=== PATIENT | female | born 1995 | race American Indian/Alaskan Native ===

== ENCOUNTER 2018-01-02 11:40 | Emergency (ER) | payer MEDICAID ==
[~2018-01-02] VITALS: Ht 162.6 cm; Wt 78.5 kg
[~2018-01-02 11:40] MED LIST: NO HOME MEDS
[2018-01-02 11:43] VITALS: BP 114/73
== END 2018-01-02 13:10 | disposition left against medical advice (07) ==
LOC: ER 11:41
DX: M79.672 Pain in left foot (principal); F32.9 Major depressive disorder, single episode, unspecified; F20.9 Schizophrenia, unspecified; Z53.21 Procedure and treatment not carried out due to patient leaving prior to being seen by health care provider

== ENCOUNTER 2018-08-09 16:04 | Emergency (ER) | payer MEDICAID ==
[~2018-08-09] VITALS: Ht 162.6 cm; Wt 54.5 kg
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
--- NOTE | 2018-08-09 16:40 | NUR ---
DR. GONZALEZ HERE TO SEE PATIENT.
--- NOTE | 2018-08-09 16:50 | NUR ---
GREEN SCRUBS APPLIED. PT UPSET TO HAVE TO REMOVE HER BRA AND SOCKS, BUT COMPLIED WHEN DENIED SNACKS. ELOPEMENT BAND AND NAME BAND APPLIED.
[2018-08-09 17:17] LABS: URINE HCG NEGATIVE (NEG)
[2018-08-09 17:19] LABS: CLARITY,URINE SLIGHTLY CLOUDY (Clear); COLOR,URINE YELLOW (Yellow); GLUCOSE, URINE NEGATIVE (Neg); KETONES,URINE NEGATIVE (Neg); LEUKOCYTE ESTERASE ,URINE TRACE (Neg); NITRITES, URINE NEGATIVE (Neg); OCCULT BLOOD,URINE SMALL (Neg); PH,URINE 7.5 (4.8-8.0); PROTEIN,URINE NEGATIVE (Neg); UROBILINOGEN,URINE 0.2 E.U/dL (0.2-1.0)
[2018-08-09 17:20] LABS: UA COLLECTION TYPE CLN CATCH MIDSTREAM
[2018-08-09 17:27] LABS: ALANINE AMINOTRANSFERASE 25 U/L (12-78); ALBUMIN 3.3 G/DL (3.4-5.0); ALKALINE PHOSPHATASE 65 IU/L (46-116); ANION GAP 7 (8-16); ASPARTATE AMINO TRANSFERASE 12 U/L (10-37); BILIRUBIN,TOTAL 0.2 MG/DL (0.1-1.0); BLOOD UREA NITROGEN 8 MG/DL (7-18); BUN/CREATININE RATIO 10.7 (6.6-38.0); CALCIUM 8.5 MG/DL (8.5-10.1); CHLORIDE 104 MMOL/L (99-107); CREATININE 0.75 MG/DL (0.40-0.90); GLUCOSE 97 MG/DL (70-104); POTASSIUM 3.5 MMOL/L (3.5-5.1); SODIUM 142 MMOL/L (135-145); TOTAL CARBON DIOXIDE 30.8 MMOL/L (24-32); TOTAL PROTEIN 6.7 G/DL (6.4-8.2); eGFR > 90 ML/MIN
[2018-08-09 17:28] LABS: URINE AMPHETAMINE SCREEN NEGATIVE (Neg); URINE BARBITUATE SCREEN NEGATIVE (Neg); URINE BENZODIAZEPINES SCREEN NEGATIVE (Neg); URINE CANNABINOID SCREEN POSITIVE (Neg); URINE COCAINE SCREEN NEGATIVE (Neg); URINE METHADONE SCREEN NEGATIVE (Neg); URINE OPIATE SCREEN NEGATIVE (Neg); URINE PHENCYCLIDINE SCREEN NEGATIVE (Neg)
[2018-08-09 17:32] LABS: MUCUS STRANDS MANY /LPF (Neg); SQUAMOUS EPITHELIAL CELL,UR MANY /LPF (FEW)
[2018-08-09 17:33] LABS: AMORPHOUS PHOSPHATES 1+
[2018-08-09 17:34] LABS: BACTERIA,URINE FEW /HPF (Neg); RBC,URINE 0-2 /HPF (0-2); WBC,URINE 0-4 /HPF (0-4)
[2018-08-09 17:37] LABS: ETHANOL < 0.010 GM/DL (0.0-0.010)
[2018-08-09 17:42] LABS: BASOPHILS % (AUTO) 0.7 % (0-1); EOSINOPHILS # (AUTO) 0.1 X10'3 (0-0.9); EOSINOPHILS % (AUTO) 2.1 % (0-6); HEMATOCRIT 39.9 % (35.0-45.0); HEMOGLOBIN 13.4 g/dl (12.0-16.0); LYMPHOCYTES # (AUTO) 1.6 X10'3 (1.1-4.8); LYMPHOCYTES % (AUTO) 28.9 % (21-51); MEAN CORPUSCULAR HEMOGLOBIN 29.8 PG (27.0-31.0); MEAN CORPUSCULAR HGB CONC 33.5 % (33.0-36.5); MEAN CORPUSCULAR VOLUME 88.9 FL (78-98); MEAN PLATELET VOLUME 7.8 FL (7.4-10.4); MONOCYTES # (AUTO) 0.4 X10'3 (0-0.9); MONOCYTES % (AUTO) 6.5 % (2-12); NEUTROPHILS # (AUTO) 3.5 X10'3 (1.8-7.7); NEUTROPHILS % (AUTO) 61.8 % (42-75); PLATELET COUNT 240 X10'3 (140-440); RED BLOOD COUNT 4.49 X10'6 (4.20-5.60); WHITE BLOOD COUNT 5.6 X10'3 (4.5-11.0)
--- NOTE | 2018-08-09 18:50 | NUR ---
TELE PSYCH INITIATED.
--- NOTE | 2018-08-09 20:15 | NUR ---
TELE PSYCH CONSULT COMPLETE, PT KEPT TRYING TO STOP EVAL STATING SHE "HAD TO GO TO THE BATHROOM".
[2018-08-09] MEDS ORDERED: nicotine 7mg patch - 24hr TD ONE (20:30)
[2018-08-09] MEDS ORDERED: OLANZapine 5mg rapidly disint. tablet PO ONE (20:30)
[2018-08-09] MEDS ORDERED: LORazepam 1 MG tablet PO ONE (20:30)
--- NOTE | 2018-08-09 20:30 | NUR ---
PT BECAME AGGITATED AFTER SPEAKING TO TELE PSYCH DEMANDING NICOTINE PATCH AND "SOMETHING FOR ANXIETY". SHE HAD PREVIOUSLY REFUSED THE NICOTINE PATCH IT WAS PASSED ON FROM DAY SHIFT SHE WAS REQUESTING ONE. SECURITY CALLED TO THE BEDSIDE AND MD APPROACHED FOR MED ORDERS.
[2018-08-09] MEDS ORDERED: LORazepam 0.5 MG tablet PO ONE (20:35)
--- NOTE | 2018-08-09 20:52 | NUR ---
relieving RN for break, pt refusing nicotine patch and zyprexa
--- NOTE | 2018-08-09 20:55 | NUR ---
PT ORDERED ZYPREXA AND ATIVAN FOR AGGITATION AND NICOTINE PATCH. REFUSED ALL EXCEPT ATIVAN.
--- NOTE | 2018-08-09 21:56 | NUR ---
PT RESTING QUIETLY, NO FURTHER OUTBURSTS.
--- NOTE | 2018-08-09 22:10 | NUR ---
Packet sent to [facility].
--- NOTE | 2018-08-10 01:26 | NUR ---
NURSE TO NURSE REPORT GIVEN TO VIANEY AT [facility].
--- NOTE | 2018-08-10 07:33 | NUR ---
Patient is sleeping supine in bed. Respirations are even and nonlabored.
[2018-08-10] MEDS: nicotine 7mg patch - 24hr TD SCH (08:00)
--- NOTE | 2018-08-10 09:55 | NUR ---
Patient awoke for breakfast. Refused her nicotine patch. Now sleeping.
--- NOTE | 2018-08-10 14:45 | NUR ---
Patient slept well last night. She is consuming adequate nutrition. Patient states that she was on Invega Sustenna, but had increased prolactin levels. Has also been on Abilify Maintaina, but felt that she was tired/depressed all the time, so she stopped taking psych meds. Patient wants to leave, but understands she may be here two more days. Patient denies AVH, denies SI/HI. Patient talking to her brother on phone presently. Patient states that she has anger issues and needs a prn for home use when she gets out of control, refusing antipsychotics. Patient has significant mood lability problems that lead to destructive/out of control behaviors.
--- NOTE | 2018-08-10 16:20 | NUR ---
Patient states she is bored. Asking many medical questions to keep herself occupied. Calm and cooperative.
[2018-08-10] MEDS ORDERED: acetaminophen 325mg tablet PO PRN (17:40)
--- NOTE | 2018-08-10 17:41 | NUR ---
Patient complaining of tooth pain, requesting [place]. Tylenol ordered, but patient refused.
--- NOTE | 2018-08-10 18:28 | NUR ---
Report rec'd, [facility]. Eating dinner currently.
--- NOTE | 2018-08-10 19:17 | NUR ---
Laying in bed, resting, awake.
--- NOTE | 2018-08-10 19:50 | NUR ---
Requested her bedtime medications, endorsed that there are none scheduled/ordered at this time. Patient then requested a snack, one was provided, and then reinforced that it was HS, and that she need to attempt to sleep.
--- NOTE | 2018-08-10 21:07 | NUR ---
Patient resting in bed with eyes closed, resp are even and unlabored, appearing to sleep. Will continue to monitor.
--- NOTE | 2018-08-10 21:59 | NUR ---
Resting in bed, awake, voices no needs. Will monitor.
--- NOTE | 2018-08-10 22:56 | NUR ---
Laying in bed, eyes closed, resp are even and unlabored, appears to sleep. Will continue to monitor.
--- NOTE | 2018-08-10 23:56 | NUR ---
Laying in bed, eyes closed, resp are even and unlabored, appears to sleep. Will continue to monitor.
--- NOTE | 2018-08-11 01:28 | NUR ---
Resting in bed, appearing to sleep with even and unlabored respirations. No new concerns or issues noted, will continue to monitor.
--- NOTE | 2018-08-11 02:44 | NUR ---
Resting in bed, appearing to sleep, will monitor.
--- NOTE | 2018-08-11 04:22 | NUR ---
Resting in bed, appearing to sleep, will monitor.
--- NOTE | 2018-08-11 05:02 | NUR ---
Resting in bed, vitals taken, no new concerns.
--- NOTE | 2018-08-11 07:20 | NUR ---
pt sleeping on right side, RR equal, non labored. no distress noted.
[2018-08-11] MEDS: nicotine 7mg patch - 24hr TD SCH (08:10)
--- NOTE | 2018-08-11 13:55 | NUR ---
[facility] at bedside with pt.
--- NOTE | 2018-08-11 14:34 | NUR ---
pt c/o being constipated last 2 days. will speak to md about possible order. pt lying in bed no distress noted. warm blanket given to pt.
[2018-08-11] MEDS ORDERED: bisacodyl 5mg tablet.DR PO ONE (16:00)
--- NOTE | 2018-08-11 16:48 | NUR ---
glasses given to pt to help read the bible.
--- NOTE | 2018-08-11 17:25 | NUR ---
pt laying on left side no distress noted.
--- NOTE | 2018-08-11 18:13 | NUR ---
Patient slightly agitated because we denied her request for crackers. Assured her that dinner will be served in a few minutes.
--- NOTE | 2018-08-11 18:31 | NUR ---
MARIO Brown from [facility] called for report.
--- NOTE | 2018-08-11 20:10 | NUR ---
Anklet placed in speciman cup and placed with personal belongings in ambo locker.
--- NOTE | 2018-08-11 21:25 | NUR ---
Patient resting comfortably on her right side with 18 even and unlabored respirations on room air.
--- NOTE | 2018-08-11 23:44 | NUR ---
Patient laying supine with eyes closed, appearing to be asleep. In no apparent distress.
--- NOTE | 2018-08-12 02:05 | NUR ---
Patient laying on right side, eyes closed. In no apparent distress.
--- NOTE | 2018-08-12 03:55 | NUR ---
Patient up to bathroom.
--- NOTE | 2018-08-12 04:53 | NUR ---
Patient resting supine comfortably, in no apparent distress.
[2018-08-12] MEDS: nicotine 7mg patch - 24hr TD SCH (08:00)
--- NOTE | 2018-08-12 08:00 | NUR ---
Patient sitting at bedside eating breakfast
[2018-08-12] MEDS ORDERED: LORazepam 1 MG tablet PO ONE (15:55)
[2018-08-12] MEDS ORDERED: LORazepam 0.5 MG tablet PO ONE (16:05)
[2018-08-12] MEDS ORDERED: aripiprazole 400mg suspension ER syringe IM SCH (16:10)
--- NOTE | 2018-08-12 17:31 | NUR ---
Agitated throughout the day. Stated since drier belt conveyor "I have to leave here. You don't understand. My father is having open heart surgery. I need to be with him." Patient's 5150 is up today and she expects to be discharged. Using foul language with staff and while on the phone with her mother. Presents as irrational and responding to internal stimuli. Staring in front of her and yelling at no one. Demanding food. Demanding to use the phone. Does not respond to verbal limits. Threatening "to michelle everyone in this place. You guys have no idea what you are doing." Isabelle from [facility] here to evaluate patient. 5150 status upheld. New 5150 written and patient informed. Accepted this information poorly. Behavior escalated. Dr. Mohr informed. Ativan 2 mg. PO ordered and administered as ordered without event.
--- NOTE | 2018-08-12 17:46 | NUR ---
pt's dad's phone number: [phone].
--- NOTE | 2018-08-12 18:15 | NUR ---
Report received from MARIO Macias. Pt. was awake waiting fro her dinner.
--- NOTE | 2018-08-12 19:00 | NUR ---
pt. had dinner, resting in bed.
--- NOTE | 2018-08-12 20:00 | NUR ---
Pt. took her medication ,used the bathroom and ask fro snack.
[2018-08-12] MEDS ORDERED: aripiprazole 5mg tablet PO SCH (21:00)
--- NOTE | 2018-08-12 22:00 | NUR ---
Pt. is sleeping comfortable.
--- NOTE | 2018-08-12 23:00 | NUR ---
Pt. is sleeping.
--- NOTE | 2018-08-13 01:04 | NUR ---
Pt. was sleeping comfortable on her right side.
[2018-08-13 05:28] VITALS: BP 86/50
--- NOTE | 2018-08-13 05:33 | NUR ---
Pt. was asleep,awaken for vitals.
--- NOTE | 2018-08-13 06:30 | NUR ---
Report given to MARIO Poole
[2018-08-13] MEDS: nicotine 7mg patch - 24hr TD SCH (08:00)
--- NOTE | 2018-08-13 08:34 | NUR ---
Pt refused her nicotine patch and she is requesting nail lithuanian I told her we would continue to assess the day and if the unit is quiet enough and she cooperates then we will work on finding her some nail lithuanian.
--- NOTE | 2018-08-13 10:30 | NUR ---
pt continously asking for the phone
--- NOTE | 2018-08-13 12:30 | NUR ---
PT CRYING ASKED FOR ATIVAN WILL CONT TO MONITOR
[2018-08-13] MEDS ORDERED: LORazepam 1 MG tablet PO ONE (13:00)
[2018-08-13] MEDS ORDERED: LORazepam 0.5 MG tablet PO ONE (13:05)
--- NOTE | 2018-08-13 13:54 | NUR ---
ALL PT BELONGINGS GATHERED PT GOING TO [facility] IN [place]
--- NOTE | 2018-08-13 13:58 | NUR ---
pt was given phone to make a call
--- NOTE | 2018-08-13 14:01 | NUR ---
earl hull mgr at bedside arranging transport to [facility] in [place].
--- NOTE | 2018-08-13 14:02 | NUR ---
yue from [facility] here to transport pt to [facility] in [place]. security guards also present to escort pt out to vehicle
--- NOTE | 2018-08-13 14:10 | NUR ---
called [facility] to let them know pt was on her way, pt has all her belongings and securtity is escorting her out
== END 2018-09-09 14:05 ==
LOC: ER 16:04
DX: F32.9 Major depressive disorder, single episode, unspecified (principal); F41.9 Anxiety disorder, unspecified; F20.9 Schizophrenia, unspecified; J45.909 Unspecified asthma, uncomplicated; F17.210 Nicotine dependence, cigarettes, uncomplicated; F15.20 Other stimulant dependence, uncomplicated; Z88.0 Allergy status to penicillin; Z88.8 Allergy status to other drugs, medicaments and biological substances
CPT/HCPCS: 36415; 80053; 80305; 80320; 81001; 81025; 84443; 85025; 96372; 99285

== ENCOUNTER 2020-08-10 14:22 | Emergency (ER) | payer MEDICAID ==
[~2020-08-10] VITALS: Ht 157.5 cm; Wt 60.0 kg
[2020-08-10 15:16] LABS: URINE HCG NEGATIVE (NEG)
[2020-08-10 15:18] LABS: CLARITY,URINE CLOUDY (Clear); COLOR,URINE YELLOW (Yellow); GLUCOSE, URINE NEGATIVE (Neg); KETONES,URINE 15 mg/dl (Neg); LEUKOCYTE ESTERASE ,URINE MODERATE (Neg); NITRITES, URINE NEGATIVE (Neg); OCCULT BLOOD,URINE LARGE (Neg); PH,URINE 5.5 (4.8-8.0); PROTEIN,URINE TRACE mg/dl (Neg)
[2020-08-10 15:24] LABS: UA COLLECTION TYPE CLN CATCH MIDSTREAM
[2020-08-10 15:26] LABS: URINE AMPHETAMINE SCREEN POSITIVE (Neg); URINE BARBITUATE SCREEN NEGATIVE (Neg); URINE BENZODIAZEPINES SCREEN NEGATIVE (Neg); URINE CANNABINOID SCREEN NEGATIVE (Neg); URINE COCAINE SCREEN NEGATIVE (Neg); URINE METHADONE SCREEN NEGATIVE (Neg); URINE OPIATE SCREEN NEGATIVE (Neg); URINE PHENCYCLIDINE SCREEN NEGATIVE (Neg)
--- NOTE | 2020-08-10 15:30 | NUR ---
Patient awake and alert and answering questions. Patient give short answers. Patient states she has Schizophrenia and Bipolar d/o. Patient has not been on meds in a while and does not want to take meds. Patient went to [facility] after being released from senior care. Patient says she is paranoid and feels like she might be hurt by someone or she will hurt herself. Patient has poverty of speech, flat affect. Patient denies audio/visual hallucinations. Patient's scalp is scaley and Techs gave patient a shower cap. No lice seen. Continue to monitor.
[2020-08-10 15:39] LABS: MUCUS STRANDS MODERATE /LPF (Neg); SQUAMOUS EPITHELIAL CELL,UR MANY /LPF (FEW)
[2020-08-10 15:40] LABS: BACTERIA,URINE 3+ /HPF (Neg); CAL OXALATE CRYSTALS 4+ /HPF (NEGATIVE)
[2020-08-10 15:41] LABS: RBC,URINE 0-2 /HPF (0-2)
[2020-08-10 15:53] LABS: BASOPHILS # (AUTO) 0.1 X10'3 (0-0.2); BASOPHILS % (AUTO) 0.9 % (0-1); EOSINOPHILS # (AUTO) 0.1 X10'3 (0-0.9); HEMATOCRIT 36.8 % (35.0-45.0); HEMOGLOBIN 12.4 g/dl (12.0-16.0); LYMPHOCYTES # (AUTO) 1.8 X10'3 (1.1-4.8); LYMPHOCYTES % (AUTO) 23.9 % (21-51); MEAN CORPUSCULAR HGB CONC 33.6 g/dL (33.0-36.5); MEAN CORPUSCULAR VOLUME 86.3 FL (78-98); MEAN PLATELET VOLUME 7.7 FL (7.4-10.4); MONOCYTES # (AUTO) 0.4 X10'3 (0-0.9); NEUTROPHILS % (AUTO) 68.2 % (42-75); PLATELET COUNT 235 X10'3 (140-440); RED BLOOD COUNT 4.27 X10'6 (4.20-5.60); RED CELL DISTRIBUTION WIDTH 13.8 % (11.5-14.5); WHITE BLOOD COUNT 7.3 X10'3 (4.5-11.0)
[2020-08-10 16:22] LABS: ALANINE AMINOTRANSFERASE 19 U/L (12-78); ALKALINE PHOSPHATASE 62 IU/L (46-116); ANION GAP 7 (8-16); ASPARTATE AMINO TRANSFERASE 12 U/L (10-37); BILIRUBIN,TOTAL 0.2 MG/DL (0.1-1.0); BLOOD UREA NITROGEN 8 MG/DL (7-18); BUN/CREATININE RATIO 10.3 (6.6-38.0); CALCIUM 8.2 MG/DL (8.5-10.1); CHLORIDE 107 MMOL/L (99-107); CREATININE 0.78 MG/DL (0.40-0.90); GLUCOSE 122 MG/DL (70-104); POTASSIUM 3.5 MMOL/L (3.5-5.1); SODIUM 140 MMOL/L (135-145); TOTAL CARBON DIOXIDE 26.1 MMOL/L (24-32); TOTAL PROTEIN 6.1 G/DL (6.4-8.2); eGFR > 90 ML/MIN
--- NOTE | 2020-08-10 16:42 | NUR ---
FAXED PACKET [facility]
--- NOTE | 2020-08-10 17:37 | NUR ---
Patient sleeping supine. No distress observed. Continue to monitor.
--- NOTE | 2020-08-10 19:40 | NUR ---
PATIENT ASKED FOR AND ATE APPLESAUCE IN ADDITION TO 75% OF HER REGULAR DINER
--- NOTE | 2020-08-10 21:00 | NUR ---
PATIENT WITH VERY FLAT AFFECT AND SLOW SPEECH, SHE THRU HER DIRTY UNDERWEAR ON THE FLOOR. I ASKED HER TO PICK THEM UP AND THROW THEM OUT AND SHE DID. PATIENT AMBULATED TO BATHROOM. SHE REFUSED TOOTHBRUSH AND PASTE TO BRUSH HER TEETH.
--- NOTE | 2020-08-10 21:29 | NUR ---
SPOKE TO DR MULLER ABOUT URINE RESULTS, NO ORDERS
--- NOTE | 2020-08-11 00:07 | NUR ---
PATIENT APPEARS TO BE SLEEPING ON HER BACK RR EVEN AN D UNALBORED
[2020-08-11 06:55] LABS: ETHANOL < 0.010 GM/DL (0.0-0.010)
--- NOTE | 2020-08-11 07:05 | NUR ---
UPDATED LABS FAXED TO [facility]
--- NOTE | 2020-08-11 09:13 | NUR ---
rcvd report from MARIO Rueda, pt appears to be asleep, resting on her left side, regular breathing observed, no needs at this time
--- NOTE | 2020-08-11 10:30 | NUR ---
spoke to Kyara at the [facility] office, awaiting Covid swab
--- NOTE | 2020-08-11 10:30 | NUR ---
pt walked to the bathroom, she was in there for a long time, playing with the toilet paper and paper towels, then wanted a box for stool sample and a cup for pee, i told her this wasn't nec, she closed the door and continued on with the papertowels and TP, back to bed, then back into the bathroom
--- NOTE | 2020-08-11 10:49 | NUR ---
spoke to Lety at [facility], [place], gave nurse to nurse is waiting for Covid result needs call back [phone]
--- NOTE | 2020-08-11 11:41 | NUR ---
GOLD MACARIO CALLED REGARDING UPDATE ON PT'S COVID TEST. INFORMED THAT PT'S TEST IS BEING SENT TO [facility] TOMORROW MORNING AND THAT THE RESULTS WILL NOT BE BACK UNTIL TOMORROW AFTERNOON. GOLD MARTIN WILL BE NOTIFING [facility] OFFICE AND WILL BE RELEASING PT'S SPOT TODAY TO SOMEONE SAMRA. ALICIA FLETCHER RN NOTIFIED Addendum: 08/11/[address] SORIA ORDERED A RAPID TEST DUE TO PT'S BED POSSIBLY BEING DELAYED TO TOMORROW. CALL MADE TO [facility] OFFICE AND TO [facility] MACARIO NOTIFIED THAT RAPID TEST WAS OBTAINED AND WILL BE BACK IN APPOX AN HOUR, WILL CALL WITH RESULTS KAILA
--- NOTE | 2020-08-11 12:26 | NUR ---
LAB CALLED, RAPID COVID TEST CAME BACK "INVALID" AND WILL MOST LIKELY COME BACK INVALID AGAIN IF RESWABBED. DECISION WAS MADE TO SENT THE HELD SWAB TO [facility] AND RESULTS WILL BE BACK LATE IN THE AFTERNOON ON 08/12/20. [facility] Jennyfer, ALICIA RN AND DR SORIA NOTIFIED.
[2020-08-11] MEDS ORDERED: NO HOME MEDS (12:44)
--- NOTE | 2020-08-11 15:00 | NUR ---
PT MOVED FROM ER BED 16 TO OVERFLOW BED 23.
--- NOTE | 2020-08-11 15:07 | NUR ---
PT ARRIVED ON UNIT. QUIETLY LAYING IN BED.
--- NOTE | 2020-08-11 15:15 | NUR ---
RN assumed care of pt. Pt. reports she is here because she is "Paranoid, scared, and homeless and I need to be evaluated and I need medication". Pt. reports she was in [facility] because the police picked her up because she couldn't find her way home. Pt. reports that her adoption social worker Natasha at [facility] told her that she should come to the ER to get help. Pt. is A&Ox3, not to circumstance. Pt. denies SI/HI, A/V hallucinations. When asked about drug use, pt. states, "no, I don't use drugs". When told that she tested + for meth, pt. responded, "I am told it was positive that I know it was negative". Pt. frequently asking for food and drinks. Pt. denies taking any home medications. Med rec done.
--- NOTE | 2020-08-11 17:15 | NUR ---
Pt. awake and eating snack in bed. Pt. in no apparent distress.
--- NOTE | 2020-08-11 18:58 | NUR ---
Pt resting quietly, respirations normal, no s/s of distress.
--- NOTE | 2020-08-11 19:59 | NUR ---
Pt resting quietly, respirations normal, no s/s of distress.
--- NOTE | 2020-08-11 21:00 | NUR ---
Pt resting quietly, respirations normal, no s/s of distress.
--- NOTE | 2020-08-11 22:00 | NUR ---
Pt resting quietly, respirations normal, no s/s of distress.
--- NOTE | 2020-08-11 23:00 | NUR ---
Pt got out of bed and requested to use the sink to wash her hands.
--- NOTE | 2020-08-12 01:00 | NUR ---
Pt resting quietly, respirations normal, no s/s of distress.
--- NOTE | 2020-08-12 02:47 | NUR ---
Pt resting quietly, respirations normal, no s/s of distress.
--- NOTE | 2020-08-12 03:50 | NUR ---
Pt resting quietly, respirations normal, no s/s of distress.
--- NOTE | 2020-08-12 08:29 | NUR ---
TERI BOARD SETTER AT [facility] TEAM - [phone]
--- NOTE | 2020-08-12 11:47 | NUR ---
U/A collected and sent nto lab per [facility] request
[2020-08-12 12:00] LABS: CLARITY,URINE CLOUDY (Clear); COLOR,URINE YELLOW (Yellow); GLUCOSE, URINE NEGATIVE (Neg); KETONES,URINE NEGATIVE (Neg); LEUKOCYTE ESTERASE ,URINE MODERATE (Neg); NITRITES, URINE NEGATIVE (Neg); OCCULT BLOOD,URINE NEGATIVE (Neg); PH,URINE 7.5 (4.8-8.0); PROTEIN,URINE NEGATIVE (Neg); UROBILINOGEN,URINE 0.2 E.U/dL (0.2-1.0)
[2020-08-12 12:07] LABS: UA COLLECTION TYPE CLN CATCH MIDSTREAM
[2020-08-12 12:09] LABS: SQUAMOUS EPITHELIAL CELL,UR MODERATE /LPF (FEW)
[2020-08-12 12:10] LABS: BACTERIA,URINE 2+ /HPF (Neg)
[2020-08-12 12:12] LABS: RBC,URINE NONE SEEN /HPF (0-2); WBC,URINE 0-4 /HPF (0-4)
--- NOTE | 2020-08-12 12:34 | NUR ---
breaking primary RN, pt is pacing around, giggling to herself, no agitation observed, will continue to monitor
--- NOTE | 2020-08-12 17:39 | NUR ---
RN AWARE OF PTS VS
--- NOTE | 2020-08-12 19:00 | NUR ---
Pt requesting something to help her sleep. Pt states she is anxious and is pacing the unit.
[2020-08-12] MEDS ORDERED: LORazepam 1 MG tablet PO ONE (19:05)
--- NOTE | 2020-08-12 20:00 | NUR ---
Medication administered, pt in bed resting quietly.
--- NOTE | 2020-08-12 21:00 | NUR ---
Pt resting quietly, respirations normal, no s/s of distress.
--- NOTE | 2020-08-12 22:00 | NUR ---
Pt resting quietly, respirations normal, no s/s of distress.
--- NOTE | 2020-08-12 22:50 | NUR ---
[facility] office called for Covid results, will fax over. They will find a bed tomorrow.
--- NOTE | 2020-08-12 23:00 | NUR ---
Pt resting quietly, respirations normal, no s/s of distress.
--- NOTE | 2020-08-13 01:14 | NUR ---
Pt resting quietly, respirations normal, no s/s of distress.
[2020-08-13 06:02] VITALS: BP 95/54
--- NOTE | 2020-08-13 06:18 | NUR ---
pt rested comfortably in bed since assumed care. SBAR given to oncoming nurse
--- NOTE | 2020-08-13 07:00 | NUR ---
Pt resting quietly in bed without complaints.
--- NOTE | 2020-08-13 09:00 | NUR ---
Pt anxious r/t discharge and is asking every few minutes about when it will happen.
== END 2020-08-13 09:54 ==
LOC: ER 14:23
DX: F15.10 Other stimulant abuse, uncomplicated (principal); Z20.828 Contact with and (suspected) exposure to other viral communicable diseases; J45.909 Unspecified asthma, uncomplicated; F32.9 Major depressive disorder, single episode, unspecified; F41.9 Anxiety disorder, unspecified; F20.9 Schizophrenia, unspecified; F29 Unspecified psychosis not due to a substance or known physiological condition; Z88.0 Allergy status to penicillin; Z88.8 Allergy status to other drugs, medicaments and biological substances
CPT/HCPCS: 36415; 80053; 80305; 80320; 81001; 81025; 84443; 85025; 87088; 87635; 99285; C9803

== ENCOUNTER 2024-01-15 10:20 | Emergency (ER) | payer MEDICAID ==
[~2024-01-15] VITALS: Ht 165.1 cm; Wt 93.8 kg
[~2024-01-15 10:20] MED LIST changes: +HYDR50TA65 PO; +OLAN10TA73 PO
[2024-01-15] MEDS: CefTRIAXone 1000mg IM Kit (w/lidocaine diluent) IM ONE (11:58)
[2024-01-15] MEDS: LIDOcaine 1% 30ml preserv. free vial IJ STA (12:34)
[2024-01-15] MEDS: BUPIVAcaine/PF 2.5 mg/ml (0.25%) 30ml vial IJ ONE (12:34)
[2024-01-15 13:20] VITALS: BP 101/69; PULSE 87; RESP 18; TEMP 98.2; O2SAT 100
== END 2024-01-15 13:24 | disposition home or self-care (01) ==
LOC: ER 10:21
DX: S61.212A Laceration without foreign body of right middle finger without damage to nail, initial encounter (principal); J45.909 Unspecified asthma, uncomplicated; F15.90 Other stimulant use, unspecified, uncomplicated; Z88.0 Allergy status to penicillin; Z88.8 Allergy status to other drugs, medicaments and biological substances; Z79.899 Other long term (current) drug therapy; X58.XXXA Exposure to other specified factors, initial encounter; Y93.89 Activity, other specified; Y92.89 Other specified places as the place of occurrence of the external cause; Y99.8 Other external cause status
CPT/HCPCS: 29130; 73140; 87070; 87077; 87186; 96372; 99284; J0696; 64450; A6449